=== PATIENT | male | born 1945 | race Caucasian/White ===

== ENCOUNTER 2021-03-13 08:59 | Day surgery (SDC) | payer MEDICARE, BC ==
[~2021-03-13 08:59] MED LIST: Lactated Ringers 1,000 ML IV SCH; Lidocaine 1% 4 ML ONE; Lidocaine 1%/Sod Bicarbonate in NS 8.4% 1 ML Syringe IDERM PRN; Propofol 200 MG/20 ML SDV ONE; Sodium Chloride 0.9% 10 ML Syringe FLUSH PRN
--- NOTE | 2021-03-13 11:37 | PCM.PREANE ---
Preanesthetic Assessment - Procedure Proposed Procedure: colonoscopy - Anesthesia/Transfusion/Family Hx Anesthesia History: Prior Anesthesia Without Reaction Family History of Anesthesia Reaction: No Transfusion History: No Prior Transfusion(s) Intubation History: Unknown - Review of Systems General: No Symptoms Pulmonary: No Symptoms Cardiovascular: No Symptoms Gastrointestinal: No Symptoms Neurological: No Symptoms Other: Reports: Easy Bleeding, Easy Bruising - Physical Assessment NPO Status Date: 03/12/21 Vital Signs: Last Vital Signs Temp 36.3 C 03/13/21 09:00 Pulse 95 03/13/21 09:00 Resp 16 03/13/21 09:00 BP 119/82 03/13/21 09:00 Pulse Ox 94 L 03/13/21 09:00 Height: 1.68 m Weight: 107.955 kg ASA Class: 3 Mental Status: Alert & Oriented x3 Airway Class: Mallampati = 3 Dentition: Reports: Normal Dentition Thyro-Mental Finger Breadths: 3 Mouth Opening Finger Breadths: 3 ROM/Head Extension: Full Lungs: Clear to Auscultation, Normal Respiratory Effort Cardiovascular: Regular Rate, Regular Rhythm - Allergies Allergies/Adverse Reactions: Allergies Allergy/AdvReac Type Severity Reaction Status Date / Time No Known Allergies Allergy Verified 03/13/21 09:44 - Blood Blood Available: No - Anesthesia Plan Pre-Op Medication Ordered: None - Acknowledgements Anesthesia Type Planned: General Anesthesia Pt an Appropriate Candidate for the Planned Anesthesia: Yes Alternatives and Risks of Anesthesia Discussed w Pt/Guardian: Yes Pt/Guardian Understands and Agrees with Anesthesia Plan: Yes PreAnesthesia Questionnaire HEENT History: Reports: Other (See Below) Other HEENT History: Impacted cerumen Cardiovascular History: Reports: High Cholesterol, Hypertension, Other (See Below) Other Cardiovascular History: Palpations, Flushing, Mixed Hyperlipidemia Gastrointestinal History: Reports: Other (See Below) Other Gastrointestinal History: Non-alcoholic steatohepatitis Musculoskeletal History: Reports: Other (See Below) Other Musculoskeletal History: Plantar Fascial Fibromatosis, Rotator Cuff Disorder Oncologic (Cancer) History: Reports: Prostate - Past Surgical History HEENT Surgical History: Reports: Cataract Surgery GI Surgical History: Reports: Appendectomy, Colonoscopy, Hernia Repair/Other Other Female Surgeries/Procedures: Reports Prostate Sx. Male Surgical History: Reports: Other (See Below) - SUBSTANCE USE Tobacco Use Status *Q: Former Tobacco User Recreational Drug Use History: No - HOME MEDS Home Medications: Home Meds Aspirin [Aspirin EC] 81 mg PO DAILY 03/12/21 [History] Chondroitin/Glucosamine [Glucosamine-Chondroitin] 1 cap PO DAILY 03/12/21 [History] Magnesium 200 mg PO DAILY 03/12/21 [History] Multivitamin 1 tab PO DAILY 03/12/21 [History] Tamsulosin HCl [Flomax] 1 cap PO DAILY 03/12/21 [History] amLODIPine [Norvasc] 5 mg PO DAILY 03/12/21 [History] - CURRENT (IN HOUSE) MEDS Current Meds: Current Medications Lactated Ringer's (Ringers, Lactated) 1,000 mls @ 125 mls/hr IV ASDIRECTED PAULETTE Stop: 03/13/21 23:00 Last Admin: 03/13/21 09:43 Dose: 125 mls/hr Documented by: Lidocaine/Sodium Bicarbonate (Lidocaine 1%/Sod Bicarbonate In Ns 8.4% 1 Ml Syringe) 0.25 ml IDERM ONETIME PRN PRN Reason: Prior to IV Start Stop: 03/13/21 18:00 Sodium Chloride (Sodium Chloride 0.9% 10 Ml Syringe) 10 ml FLUSH ASDIRECTED PRN PRN Reason: Keep Vein Open Stop: 03/13/21 18:00 Discontinued Medications Lidocaine HCl (Xylocaine-Mpf 1%) Confirm Administered Dose 4 mls @ as directed .ROUTE .STK-MED ONE Stop: 03/13/21 08:58 Propofol (Propofol 200 Mg/20 Ml Sdv) Confirm Administered Dose 400 mg .ROUTE .STK-MED ONE Stop: 03/13/21 08:58
[2021-03-13] MEDS ORDERED: Ketamine 500 mg/10 ML MDV ONE (11:56)
[2021-03-13] MEDS ORDERED: Midazolam 1 MG/ML 2 ML SDV ONE (11:58)
[2021-03-13] MEDS ORDERED: Propofol 200 MG/20 ML SDV ONE (12:15)
--- NOTE | 2021-03-13 12:45 | PCM48HPAN ---
Post Anesthesia Note - EVALUATION WITHIN 48HRS OF ANESTHETIC Vital Signs in Normal Range: Yes Patient Participated in Evaluation: Yes Respiratory Function Stable: Yes Airway Patent: Yes Cardiovascular Function Stable: Yes Hydration Status Stable: Yes Pain Control Satisfactory: Yes Nausea and Vomiting Control Satisfactory: Yes Mental Status Recovered: Yes Vital Signs: Last Vital Signs Temp 36.1 C 03/13/21 12:31 Pulse 76 03/13/21 12:31 Resp 14 03/13/21 12:31 BP 132/76 03/13/21 12:31 Pulse Ox 92 L 03/13/21 12:31
--- NOTE | 2021-03-13 12:53 | PCM.OPNOTE ---
- General Post-Op/Procedure Note Date of Surgery/Procedure: 03/13/21 Operative Procedure(s): colonoscopy Findings: 1. Diverticulosis 2. Colon polyps Pre Op Diagnosis: Screening for colon cancer Post-Op Diagnosis: same Anesthesia Technique: MAC Primary Surgeon: Emani Turk Anesthesia Provider: Marlin Valadez Pathology: 1. Transverse colon polyp 2. rectal polyp Fluid Replacement, Intraop: 1,000 Output, Urine Amount: 0 EBL in mLs: 0 Complications: none apparent Condition: Good
--- NOTE | 2021-03-13 13:11 | PCM.PRNOTE ---
- Free Text/Narrative Note: Operative Report Date of Surgery/Procedure: March 13, 2021 Operative Procedure: Colonoscopy to cecum Pre Op Diagnosis: colorectal cancer screening Post-Op Diagnosis: same Surgeon: Emani Turk MD Fur Dyer: Jeremias Benavides MS3 Anesthesia Technique: MAC Anesthesia Provider: Marlin Valadez CRNA IV Fluid Replacement, Intraop: 800cc Output, Urine Amount: 0cc EBL : 0cc Findings: 1. Diverticulosis 2. Colon polyps Specimens: 1. Transverse colon polyp 2. Rectal polyp Indication: The patient is a 75 year-old gentleman who presented to the outpatient clinic requesting colorectal cancer screening. We discussed the procedure of a screening colonoscopy including the polypectomy and biopsy. Risks of bleeding and perforation were discussed, the patient understood and wished to proceed. Written and consent was obtained. Description of the procedure: The patient was brought to the endoscopy suite and placed in the left lateral decubitus position. Appropriate monitors were applied. The patient was given MAC anesthesia. An anorectal examination was performed, revealing large external skin tags. The scope was placed into the rectum and advanced to cecum with minimal difficulty. The patients cecum was entered, and the ileocecal valve and appendiceal orifice were identified and normal. At this point, the scope was withdrawn, paying careful attention to the mucosa. The patient had adequate bowel prep, allowing for visualization of the mucosa after washing and suctioning. There was diffuse diverticulosis. A 9mm sessile polyp was noted in the transverse colon and removed with a hot snare. In the rectum, a 3mm flat polyp was removed with a jumbo cold biopsy forceps. The scope was retroflexed and no abnormalities were noted, except for some hemorrhoidal tissue. The scope was placed back in the lumen and the excess air was aspirated. The patient tolerated the procedure well. Complications: none apparent Condition: Good, transported to PACU in stable condition Emani Turk MD General Surgery
== END 2021-03-13 13:36 | disposition home or self-care (01) ==
LOC: JD.SDS 08:59
PROVIDERS: ATTEND Surgery
DX: D12.3 Benign neoplasm of transverse colon (principal); K62.1 Rectal polyp; K57.30 Diverticulosis of large intestine without perforation or abscess without bleeding; K64.4 Residual hemorrhoidal skin tags; I10 Essential (primary) hypertension; E78.2 Mixed hyperlipidemia; E78.00 Pure hypercholesterolemia, unspecified; E66.9 Obesity, unspecified; Z68.41 Body mass index [BMI] 40.0-44.9, adult; Z85.46 Personal history of malignant neoplasm of prostate; Z79.82 Long term (current) use of aspirin; Z79.899 Other long term (current) drug therapy; Z87.891 Personal history of nicotine dependence
CPT/HCPCS: 45380; 45385; J2250; J2704; J7120; 00812; 88305; 99100

== ENCOUNTER 2023-04-01 06:51 | Day surgery (SDC) | payer MEDICARE, BC ==
[~2023-04-01 06:51] MED LIST changes: -Lidocaine 1% 4 ML ONE; -Lidocaine 1%/Sod Bicarbonate in NS 8.4% 1 ML Syringe IDERM PRN; -Propofol 200 MG/20 ML SDV ONE; +Sodium Chloride 0.9% 10 ML Syringe FLUSH SCH
[2023-04-01] MEDS ORDERED: Propofol 200 MG/20 ML SDV ONE ×2 (08:08→08:42)
[2023-04-01] MEDS ORDERED: fentaNYL 100 MCG/2 ML SDV ONE (08:08)
[2023-04-01] MEDS ORDERED: Lidocaine 1% 4 ML ONE (08:08)
[2023-04-01] MEDS ORDERED: Lidocaine 1% 2 ML ONE (08:25)
[2023-04-01] MEDS ORDERED: Sodium Chloride 0.9% 100 ML ONE (08:58)
== END 2023-04-01 10:25 | disposition home or self-care (01) ==
LOC: JD.SDS 06:51
PROVIDERS: ATTEND Surgery
DX: K57.30 Diverticulosis of large intestine without perforation or abscess without bleeding (principal); K22.70 Barrett's esophagus without dysplasia; K29.70 Gastritis, unspecified, without bleeding; K29.80 Duodenitis without bleeding; K64.8 Other hemorrhoids; K31.89 Other diseases of stomach and duodenum; R93.3 Abnormal findings on diagnostic imaging of other parts of digestive tract; K21.9 Gastro-esophageal reflux disease without esophagitis; K92.1 Melena; I10 Essential (primary) hypertension; R97.20 Elevated prostate specific antigen [PSA]; C61 Malignant neoplasm of prostate; E78.2 Mixed hyperlipidemia; R00.2 Palpitations; Z86.010 Personal history of colon polyps; K75.81 Nonalcoholic steatohepatitis (NASH); Z90.49 Acquired absence of other specified parts of digestive tract; Z98.49 Cataract extraction status, unspecified eye; Z87.891 Personal history of nicotine dependence
CPT/HCPCS: 43239; 88305; 88341; 88342; 88360; G0105; J2704; J3010; J3490; J7120; 00813; 99100

== ENCOUNTER 2024-09-10 13:09 | Emergency (ER) | payer MEDICARE, BC ==
[2024-09-10 16:36] LABS: BASOPHILS PERCENT AUTO 0.9 % (0.0-1.0); EOSINOPHILS ABSOLUTE AUTO 0.1 K/mm3 (0.0-0.4); EOSINOPHILS PERCENT AUTO 1.6 % (0.0-6.0); HEMATOCRIT 31.8 % (42.0-52.0); HEMOGLOBIN 11.1 gm/dl (14.0-18.0); IMMATURE GRAN ABSOLUTE AUTO 0.01 K/mm3 (0.00-0.05); IMMATURE GRAN PERCENT AUTO 0.2 % (0.0-0.4); LYMPHOCYTES ABSOLUTE AUTO 0.9 K/mm3 (1.0-4.8); LYMPHOCYTES PERCENT AUTO 19.5 % (24.0-44.0); MEAN CORPUSCULAR HEMOGLOBIN 33.4 pg (28.0-32.0); MEAN CORPUSCULAR HGB CONC 34.9 g/dl (32.0-36.0); MEAN CORPUSCULAR VOLUME 95.8 fl (83.0-99.0); MEAN PLATELET VOLUME 10.1 fl (9.4-12.4); MONOCYTES ABSOLUTE AUTO 0.7 K/mm3 (0.0-0.8); MONOCYTES PERCENT AUTO 15.2 % (0.0-8.0); NEUTROPHILS ABSOLUTE AUTO 2.8 K/mm3 (1.8-7.7); NEUTROPHILS PERCENT AUTO 62.6 % (41.0-71.0); PLATELET COUNT,PLT 156 K/mm3 (150-400); RED BLOOD CELL COUNT 3.32 M/mm3 (4.52-5.90); WHITE BLOOD CELL COUNT,WBC 4.41 K/mm3 (3.9-11.3)
[2024-09-10] MEDS ORDERED: Naloxone 0.4 MG/ML SDV IVPUSH PRN (16:37)
[2024-09-10] MEDS ORDERED: Sodium Chloride 0.9% 1,000 ML IV SCH (16:45)
[2024-09-10 17:03] LABS: A/G RATIO 0.4 (1-2); ALBUMIN 1.8 g/dl (3.4-5.0); ANION GAP 8.3 (5-15); BILIRUBIN TOTAL 0.9 mg/dL (0.2-1.0); BUN/CREATININE RATIO 11.4 (14-18); C-REACTIVE PROTEIN 1.43 mg/dL (<0.30); CALCIUM 8.1 mg/dL (8.5-10.1); CREATININE 0.7 mg/dL (0.7-1.3); MAGNESIUM 1.9 mg/dL (1.8-2.4); POTASSIUM,K 3.3 mEq/L (3.5-5.1); PROTEIN TOTAL,TP 6.7 g/dl (6.4-8.2)
[2024-09-10 17:08] LABS: LACTIC ACID 1.5 mmol/L (0.4-2.0)
[2024-09-10] MEDS: fentaNYL 100 MCG/2 ML SDV IVPUSH ONE (18:43)
== END 2024-09-10 18:44 | disposition home or self-care (01) ==
LOC: JD.ED 13:09
DX: M25.552 Pain in left hip (principal); E78.00 Pure hypercholesterolemia, unspecified; Z90.49 Acquired absence of other specified parts of digestive tract; Z79.82 Long term (current) use of aspirin; Z79.899 Other long term (current) drug therapy; W01.0XXA Fall on same level from slipping, tripping and stumbling without subsequent striking against object, initial encounter
CPT/HCPCS: 36415; 73502-26-LT; 73502-LT; 80053; 83605; 83735; 85025; 86140; 87428-QW; 99283

== ENCOUNTER 2024-10-31 08:52 | Emergency (ER) | payer MEDICARE, BC ==
[2024-10-31 09:48] LABS: BASOPHILS ABSOLUTE AUTO 0.1 K/mm3 (0.0-0.2); BASOPHILS PERCENT AUTO 1.3 % (0.0-1.0); EOSINOPHILS ABSOLUTE AUTO 0.1 K/mm3 (0.0-0.4); EOSINOPHILS PERCENT AUTO 2.5 % (0.0-6.0); HEMATOCRIT 23.8 % (42.0-52.0); IMMATURE GRAN ABSOLUTE AUTO 0.01 K/mm3 (0.00-0.05); IMMATURE GRAN PERCENT AUTO 0.3 % (0.0-0.4); LYMPHOCYTES ABSOLUTE AUTO 0.6 K/mm3 (1.0-4.8); LYMPHOCYTES PERCENT AUTO 14.2 % (24.0-44.0); MEAN CORPUSCULAR HGB CONC 32.4 g/dl (32.0-36.0); MEAN PLATELET VOLUME 9.9 fl (9.4-12.4); MONOCYTES ABSOLUTE AUTO 0.4 K/mm3 (0.0-0.8); MONOCYTES PERCENT AUTO 10.9 % (0.0-8.0); NEUTROPHILS ABSOLUTE AUTO 2.8 K/mm3 (1.8-7.7); NEUTROPHILS PERCENT AUTO 70.8 % (41.0-71.0); RED BLOOD CELL COUNT 2.41 M/mm3 (4.52-5.90); WHITE BLOOD CELL COUNT,WBC 3.93 K/mm3 (3.9-11.3)
[2024-10-31 09:53] LABS: HEMOGLOBIN 7.7 gm/dl (14.0-18.0)
[2024-10-31 09:54] LABS: MEAN CORPUSCULAR VOLUME 98.8 fl (83.0-99.0); PLATELET COUNT,PLT 253 K/mm3 (150-400)
[2024-10-31 10:07] LABS: INR 1.15; PROTHROMBIN TIME 12.1 SECONDS (9.7-12.0)
[2024-10-31 10:08] LABS: PTT,PARTIAL THROMBOPLSTIN TIME 26.9 SECONDS (21.7-31.4)
[2024-10-31 10:11] LABS: A/G RATIO 0.4 (1-2); ALBUMIN 1.9 g/dl (3.4-5.0); BILIRUBIN TOTAL 0.5 mg/dL (0.2-1.0); BUN/CREATININE RATIO 11.3 (14-18); CALCIUM 8.3 mg/dL (8.5-10.1); CREATININE 0.8 mg/dL (0.7-1.3); EST CRCL DRUG DOSING (CG) 52.95 mL/min; PROTEIN TOTAL,TP 6.7 g/dl (6.4-8.2)
[2024-10-31] MEDS ORDERED: Sodium Chloride 0.9% 1,000 ML ONE (13:26)
[2024-10-31 15:56] LABS: HEMATOCRIT 21.8 % (42.0-52.0)
[2024-10-31 15:58] LABS: HEMOGLOBIN 6.9 gm/dl (14.0-18.0)
[2024-10-31] MEDS ORDERED: Sodium Chloride 0.9% 250 ML ONE (16:03)
[2024-10-31] MEDS: Lidocaine 2% with EPINEPHrine 1:100,000 20 ML MDV INJECT ONE (17:39)
== END 2024-10-31 19:43 ==
LOC: JD.ED 08:52
DX: J95.811 Postprocedural pneumothorax (principal); Z79.82 Long term (current) use of aspirin; Z79.899 Other long term (current) drug therapy
CPT/HCPCS: 36415; 36430; 71045; 80053; 85014; 85018; 85025; 85610; 85730; 86850; 86900; 86901; 93005; 99285; C1729; P9016; P9017; 93010; J3490

== ENCOUNTER 2025-07-04 06:28 | Day surgery (SDC) | payer MEDICARE, BC ==
[~2025-07-04 06:28] MED LIST changes: -Lactated Ringers 1,000 ML IV SCH
[2025-07-04] MEDS ORDERED: propofoL 500 MG/50 ML 50 ML ONE (06:42)
[2025-07-04] MEDS: Lactated Ringers 1,000 ML IV SCH (06:45)
[2025-07-04] MEDS ORDERED: ePHEDrine 50 MG/ML SDV ONE (08:19)
== END 2025-07-04 09:20 | disposition home or self-care (01) ==
LOC: JD.SDS 06:28
PROVIDERS: ATTEND Surgery
DX: K29.50 Unspecified chronic gastritis without bleeding (principal); K31.89 Other diseases of stomach and duodenum; K57.31 Diverticulosis of large intestine without perforation or abscess with bleeding; K64.4 Residual hemorrhoidal skin tags; D50.9 Iron deficiency anemia, unspecified; I12.9 Hypertensive chronic kidney disease with stage 1 through stage 4 chronic kidney disease, or unspecified chronic kidney disease; N18.9 Chronic kidney disease, unspecified; I25.10 Atherosclerotic heart disease of native coronary artery without angina pectoris; E03.9 Hypothyroidism, unspecified; K70.31 Alcoholic cirrhosis of liver with ascites; Z98.0 Intestinal bypass and anastomosis status; Z86.0101 Personal history of adenomatous and serrated colon polyps; Z87.891 Personal history of nicotine dependence; Z79.899 Other long term (current) drug therapy; Z79.890 Hormone replacement therapy
CPT/HCPCS: 43239; 45378; 88305; 88342; J2003; J2704; J7120; 00813; 99100; J3490